=== PATIENT | female | born 1975 | race Caucasian/White ===

== ENCOUNTER 2019-11-10 07:05 | Inpatient (IN) ==
[2019-11-05 15:39] LABS: Appearance,Urine CLEAR; Bilirubin,Urine NEG (NEG); Color,Urine YELLOW; Culture Indicated,Urine NO; Glucose,Urine (UA) NEGATIVE (NEG); Ketones,Urine NEG (NEG); Leukocyte Esterase,Urine NEG /uL (NEG); Nitrate,Urine NEG (NEG); Protein,Urine NEG (NEG); Specific Gravity,Urine 1.017 (1.000-1.035); Urine Blood NEG mg/dL (<0.03); Urobilinogen,Urine NEG (NEG)
[2019-11-05 16:38] LABS: Basophils # (Auto) 0.09 K/mcL (0.00-0.30); Basophils % (Auto) 1.2 % (0.0-2.0); Eosinophils # (Auto) 0.23 K/mcL (0.00-0.70); Eosinophils % (Auto) 3.1 % (0.0-7.0); Granulocytes % (Auto) 51.7 % (38.0-78.0); Hematocrit 40.8 % (34.1-44.9); Hemoglobin 13.2 g/dL (11.2-15.7); Lymphocytes # (Auto) 2.54 K/mcL (1.50-4.80); Lymphocytes % (Auto) 34.5 % (15.5-49.0); Mean Cell Volume 84.1 fL (80.0-100.0); Mean Corpuscular HGB Conc 32.4 g/dL (31.0-36.0); Mean Platelet Volume 9.8 fL (7.4-10.4); Monocytes % (Auto) 9.5 % (1.0-12.0); Platelet Count 424 K/mcL (140-440); RBC 4.85 M/mcL (3.59-5.38); Red Cell Distribution Width 14.5 % (11.5-14.5); WBC 7.4 K/mcL (4.50-11.00)
[2019-11-05 17:15] LABS: Blood Urea Nitrogen 15 mg/dl (6-20); Calcium 8.9 mg/dl (8.6-10.4); Carbon Dioxide 20 mmol/L (22-30); Chloride 104 mmol/L (96-108); Glomerular Filtration Rate 77; Glucose 117 mg/dL (70-105)
[2019-11-05 18:01] LABS: Prothrombin Time 13.3 sec (11.9-14.5)
[2019-11-05 18:20] LABS: HCG,Serum NEGATIVE <10 (<10 mIU/ml)
[~2019-11-10 07:05] MED LIST: ACETAMINOPHEN 500 MG TABLET PO SCH; CELECOXIB 200 MG CAPSULE PO SCH; IPRATROPIUM/ALBUTEROL 3 ML AMPUL.NEB NEB PRN; PREGABALIN 75 MG CAPSULE PO SCH; oxyCODONE 10 MG TAB.ER.12H PO SCH
[2019-11-10] MEDS ORDERED: ceFAZolin 3 GM in DEXTROSE 5% IN WATER 50 ML IV SCH (09:00)
[2019-11-10] MEDS ORDERED: fentaNYL 250 MCG/5 ML VIAL IV ONE (09:12)
[2019-11-10] MEDS ORDERED: SUCCINYLCHOLINE 20 MG/ML ML IV ONE (09:12)
[2019-11-10] MEDS ORDERED: PROPOFOL 200 MG/20 ML VIAL IV ONE (09:12)
[2019-11-10] MEDS ORDERED: ONDANSETRON 4 MG/2 ML VIAL IV ONE (09:12)
[2019-11-10] MEDS ORDERED: ROPIVACAINE HCL/PF 30 ML VIAL IJ ONE (09:12)
[2019-11-10] MEDS ORDERED: LIDOCAINE HCL/PF 100 MG/5 ML SYRINGE IV ONE (09:12)
[2019-11-10] MEDS ORDERED: DEXAMETHASONE 10 MG/ML VIAL IV ONE (09:12)
[2019-11-10] MEDS ORDERED: GLYCOPYRROLATE 0.2 MG/ML VIAL IV ONE (09:12)
[2019-11-10] MEDS ORDERED: TRANEXAMIC ACID 1,000 MG/10 ML VIAL IV ONE ×2 (09:12→10:31)
[2019-11-10] MEDS ORDERED: KETAMINE 100 MG/ML ML IV ONE (09:12)
[2019-11-10] MEDS ORDERED: MIDAZOLAM 5 MG/5 ML VIAL IV ONE (09:12)
[2019-11-10] MEDS ORDERED: FLUMAZENIL 0.1 MG/ML ML IV PRN (09:55)
[2019-11-10] MEDS ORDERED: PROMETHAZINE 25 MG/ML VIAL IV PRN (09:55)
[2019-11-10] MEDS ORDERED: IPRATROPIUM/ALBUTEROL 3 ML AMPUL.NEB NEB PRN (09:55)
[2019-11-10] MEDS ORDERED: HYDROmorphone 0.5 MG/0.5 ML SYRINGE IV PRN (09:55)
[2019-11-10] MEDS ORDERED: diphenhydrAMINE 50 MG/ML VIAL IV PRN (09:55)
[2019-11-10] MEDS ORDERED: METOPROLOL TARTRATE 5 MG/5 ML VIAL IV PRN (09:55)
[2019-11-10] MEDS ORDERED: ePHEDrine 50 MG/ML AMPUL IV PRN (09:55)
[2019-11-10] MEDS ORDERED: ONDANSETRON 4 MG/2 ML VIAL IV PRN ×2 (09:55→10:31)
[2019-11-10] MEDS ORDERED: fentaNYL 100 MCG/2 ML VIAL IV PRN (09:55)
[2019-11-10] MEDS ORDERED: METHOCARBAMOL 1,000 MG/10 ML VIAL IV PRN (09:55)
[2019-11-10] MEDS ORDERED: NALOXONE HCL 0.4 MG/ML VIAL IV PRN (09:55)
[2019-11-10] MEDS ORDERED: ATROPINE SULFATE 0.4 MG/ML VIAL IV PRN (09:55)
[2019-11-10] MEDS ORDERED: LACTATED RINGERS 1,000 ML IV SCH (10:00)
[2019-11-10] MEDS ORDERED: HYDROmorphone 1 MG/ML SYRINGE IV PRN (10:31)
[2019-11-10] MEDS ORDERED: POLYETHYLENE GLYCOL 3350 17 GM PACKET PO PRN (10:31)
[2019-11-10] MEDS ORDERED: TEMAZEPAM 15 MG CAPSULE PO PRN (10:31)
[2019-11-10] MEDS ORDERED: ACETAMINOPHEN 325 MG TABLET PO PRN (10:31)
[2019-11-10] MEDS ORDERED: BISACODYL 10 MG SUPP.RECT PR PRN (10:31)
[2019-11-10] MEDS ORDERED: FLEETS ADULT ENEMA PR PRN (10:31)
[2019-11-10] MEDS ORDERED: KETOROLAC 15 MG/ML VIAL IV PRN (10:31)
[2019-11-10] MEDS ORDERED: BENZOCAINE/MENTHOL 1 LOZENGE PO PRN (10:31)
[2019-11-10] MEDS ORDERED: MAGNESIUM HYDROXIDE 30 ML ORAL.SUSP PO PRN (10:31)
--- NOTE | 2019-11-10 10:31 | Brief Operative Note ---
Brief Operative Note Date of procedure: 11/10/19 Pre-op diagnosis: right shoulder djd Post-op diagnosis: same Procedure: right reverse tsa and bicep tenodesis Grafts/Implants: Yes Anesthesia: GETA Complications: none Surgeon: Dalton Hernandez Drain Technician: Pro Castellano Estimated blood loss (cc): 50 Specimens Removed/Pathology: none sent Condition: stable Disposition: PACU
[2019-11-10] MEDS ORDERED: HYDROCODONE/APAP 7.5/325MG TABLET PO PRN (10:34)
[2019-11-10] MEDS ORDERED: BENZONATATE 100 MG CAPSULE PO PRN (10:34)
[2019-11-10] MEDS ORDERED: PROMETHAZINE 25 MG TABLET PO PRN (10:34)
[2019-11-10] MEDS ORDERED: SUMAtriptan SUCCINATE 50 MG TABLET PO PRN (10:34)
[2019-11-10] MEDS ORDERED: ALPRAZolam 0.5 MG TABLET PO PRN (10:34)
[2019-11-10] MEDS ORDERED: GENTAMICIN SULFATE 800 MG/20 ML VIAL IR ONE (10:36)
[2019-11-10] MEDS ORDERED: CYCLOBENZAPRINE 10 MG TABLET PO PRN (10:43)
--- NOTE | 2019-11-10 10:49 | Discharge Plan ---
Discharge Instructions - [facility] Patient Instructions Total Shoulder Protocol: Leave immobilizer in place except for bathing and ROM. Abduction pillow. Continue to wear sling until seen by physician. Codman Pendulum : These exercises use momentum produced by your body to move your shoulder joint. Bend your knees and shift your weight to your front leg, then back, allowing your arm to swing in the same directions. Using the same technique, alternately shift your weight between your right and left legs, allowing your arm to swing from side to side. These exercises are also performed in counterclockwise and clockwise circular motions. Typically these exercises are performed several times per day, for a set number repetitions or minutes, such as 20 times in a row or 5 minutes at a time. Discharge Plan Patient/Caregiver Discharge Instructions Activity: as per physical therapy Diet: Regular Diet Prescriptions: New hydrocodone-acetaminophen 7.5-325 mg Tablet 1 tab PO Q4-6HP PRN (Reason: Pain) Qty: 75 RF: 0 docusate sodium 100 mg Capsule 100 mg PO BID Qty: 60 RF: 0 No Action celecoxib 200 mg Capsule 200 mg PO BIDP PRN (Reason: Pain) RF: 0 cyclobenzaprine 10 mg Tablet 10 mg PO HSP PRN (Reason: MUSCLE TENSION) RF: 0 sumatriptan succinate 50 mg Tablet 50 mg PO DAILYP PRN (Reason: Migraine Headache) RF: 0 alprazolam 0.5 mg Tablet 0.5 mg PO Q6HP PRN (Reason: Anxiety) RF: 0 benzonatate 100 mg Capsule 100 mg PO Q8HP PRN (Reason: Cough) RF: 0 hydrocodone-acetaminophen 7.5-325 mg Tablet 1 tab PO Q4-6HP PRN (Reason: Pain) RF: 0 buspirone 10 mg Tablet 10 mg PO BID RF: 0 buspirone 10 mg Tablet 5 - 10 mg PO DAILYP PRN (Reason: Anxiety) RF: 0 promethazine 25 mg Tablet 25 - 50 mg PO Q6HP PRN (Reason: Nausea) RF: 0 hydrochlorothiazide 25 mg Tablet 25 mg PO QDAY RF: 0 norethindrone (contraceptive) 0.35 mg Tablet 0.35 mg PO QDAY RF: 0 loratadine 10 mg Tablet 10 mg PO QDAY RF: 0 escitalopram oxalate 10 mg Tablet 10 mg PO QDAY RF: 0 topiramate 50 mg Tablet 50 mg PO BID RF: 0 Other Ambulatory Orders: Brace/Splint (ONCE) Location: None Selected Ordered By: Pro Castellano Physical Therapy DC - TSA (Routine) Location: None Selected Ordered By: Pro Castellano Follow Up Plan Follow up with: Pro Castellano PA-C [Physician A And P Technician] - 11/25/19 1:00 pm Patient Disposition: Home, Self-Care Rehab Potential: Good I certify that the patient requires SNF services: No Overall status at discharge: patient is progressing back to baseline Discharge Orders: Discharge Order (Routine); Ordered 11/11/19 Ordered By: Pro Castellano
--- NOTE | 2019-11-10 10:53 | Operative Note ---
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 PROCEDURE: Right reverse total shoulder with a biceps tenodesis. SURGEON: Dalton Hernandez M.D. PRINCIPAL EXAMINER: Pro Castellano PA-C. The PA's assistance was required for the safe and efficient completion of the entire case. This provider's expertise and technical skill were required throughout the case. The PA assisted with preoperative coordination, intraoperative retraction, wound closure, dressing and splint application, as well as postoperative documentation and care coordination. ANESTHESIA: General LMA anesthesia. COMPLICATIONS: None. ESTIMATED BLOOD LOSS: Approximately 50 mL. DESCRIPTION OF PROCEDURE: The patient was brought to the operating room and put to sleep with general LMA anesthesia. Once asleep, the patient had the right shoulder sterilely prepped and draped in the usual sterile fashion. Ioban was placed over the skin and a timeout performed confirming operative site by initials, consent form, and x-rays. A deltopectoral approach was performed, retracting the deltoid posteriorly, conjoined tendon medially. We were able to release the capsule and repair the biceps tendon to the pectoralis major. Once done, we were able to then sublux the humeral head anteriorly, make our neck cut at 135 degrees. We then subluxed the head posteriorly and reamed the acetabulum, removing any remnants of the biceps tendon, as well as a 360-degree capsular release around the glenoid with some fairly large spurs. Once done, we were able to place the metaglene and glenosphere. The glenosphere was a 36 mm sphere with 2 mm of offset and 2 mm of the eccentricity. Once done, we then broached the humerus up to a size 11 stem with an 8 mm poly insert. Final implants were placed. The patient tolerated this well. There were no complications. We irrigated thoroughly. We closed the deltopectoral approach with #1 Vicryl, closed the skin with Vicryl and Stratafix. Sterile bandage was applied with adhesive closure. The patient tolerated this well without complications and was fitted and given a Donjoy sling at the end of the case. VERÓNICA:tabatha Job ID: [id number] Doc ID: [id number] Dalton Hernandez MD
--- NOTE | 2019-11-10 11:55 | XRay Report ---
CLINICAL INFORMATION: Post-OP Total Shoulder COMPARISON: Preoperative film 01/24/2019 FINDINGS: Right total shoulder prostheses is anatomically aligned. No osseous abnormality. Soft tissues normal IMPRESSION: Negative Interpreted and Authenticated by: Janes Mason 11/10/19
[2019-11-10] MEDS: LACTATED RINGERS 1,000 ML IV SCH ×2 (12:10→22:07)
[2019-11-10] MEDS: HYDROcodone/APAP 10/325MG TABLET PO PRN ×3 (14:31→22:46)
[2019-11-10] MEDS: 0.9 % SODIUM CHLORIDE 10 ML SYRINGE IV SCH ×2 (14:31→22:07)
[2019-11-10] MEDS: ceFAZolin 1 GM VIAL IV SCH (16:04)
[2019-11-10] MEDS ORDERED: SENNOSIDES 1 TABLET PO SCH (21:00)
[2019-11-10] MEDS: DOCUSATE SODIUM 100 MG CAPSULE PO SCH (21:03)
[2019-11-10] MEDS: busPIRone 5 MG TABLET PO SCH (21:03)
[2019-11-10] MEDS: TOPIRAMATE 25 MG TABLET PO SCH (21:04)
[2019-11-10] MEDS: CELECOXIB 200 MG CAPSULE PO PRN (21:10)
[2019-11-11] MEDS: ceFAZolin 1 GM VIAL IV SCH (01:15)
[2019-11-11] MEDS: HYDROcodone/APAP 10/325MG TABLET PO PRN ×2 (02:25→07:17)
[2019-11-11] MEDS: 0.9 % SODIUM CHLORIDE 10 ML SYRINGE IV SCH (06:12)
[2019-11-11] MEDS: CELECOXIB 200 MG CAPSULE PO PRN (07:16)
[2019-11-11] MEDS: busPIRone 5 MG TABLET PO SCH (07:16)
[2019-11-11] MEDS: DOCUSATE SODIUM 100 MG CAPSULE PO SCH (07:16)
[2019-11-11] MEDS: TOPIRAMATE 25 MG TABLET PO SCH (07:16)
[2019-11-11] MEDS: LACTATED RINGERS 1,000 ML IV SCH (07:18)
[2019-11-11] MEDS ORDERED: ESCITALOPRAM 10 MG TABLET PO SCH (09:00)
[2019-11-11] MEDS ORDERED: HYDROCHLOROTHIAZIDE 25 MG TABLET PO SCH (09:00)
[2019-11-11] MEDS ORDERED: LORATADINE 10 MG TABLET PO SCH (09:00)
[2019-11-11] MEDS ORDERED: NORETHINDRONE 0.35 MG PO SCH (09:00)
== END 2019-11-11 10:44 | disposition home or self-care (01) | DRG 483 ==
LOC: MEDSUR 07:05
PROVIDERS: ADMIT Orthopaedic Surgery; ATTEND Orthopaedic Surgery